=== PATIENT | female | born 1995 | race Caucasian/White ===

== ENCOUNTER 2019-08-10 03:51 | Emergency (ER) | payer OTHER ==
[2019-08-10 04:00] VITALS: BP 142/89
--- NOTE | 2019-08-10 04:11 | ED Physician Documentation ---
History of Present Illness - Stated complaint Stated Complaint: ARM RASH - Chief complaint Chief Complaint: Wound - Additonal information Additional information: This is a 24-year-old female who is otherwise healthy who presents with itchy r justino on her arms and her abdomen. This started several hours ago while she was at work, she notes that there have been some wheels of itchiness on her arms which have come and gone she has also had some spots on her abdomen, and her chest. She denies any painful spots, no swelling of her throat, no shortness of breath, no vomiting. She cannot think of any new potential allergic exposures in the environment, other than she ate [employer] for the first time today. She has no history of allergies. She otherwise feels well. Now her rash seems to be fading. Review of Systems Constitutional: denies: Fever Throat: denies: Sore throat Cardiac: denies: Chest pain / pressure Respiratory: denies: Dyspnea Skin: reports: Rash PD PAST MEDICAL HISTORY - Past Medical History Past Medical History: No - Past Surgical History Past Surgical History: No - Present Medications Home Medications: Ambulatory Orders Medication Instructions Recorded Confirmed Hydrocortisone 1% Oint 28 gm TP BID PRN #1 tube 08/10/19 [Hydrocortisone] diphenhydrAMINE [Benadryl] 25 mg PO Q4-6H PRN #20 capsule 08/10/19 - Allergies Allergies/Adverse Reactions: Allergies Allergy/AdvReac Type Severity Reaction Status Date / Time No Known Drug Allergies Allergy Verified 08/10/19 04:00 - Social History Does the pt smoke?: No Smoking Status: Never smoker Does the pt drink ETOH?: Yes Does the pt have substance abuse?: No - Immunizations Immunizations are current?: Yes PD ED PE NORMAL - Vitals Vital signs reviewed: Yes - General General: Alert and oriented X 3, No acute distress - HEENT HEENT: PERRL, Moist mucous membranes, Other (No oral lesions) - Neck Neck: Supple, no meningeal sign - Cardiac Cardiac: Other (RRR on my exam) - Respiratory Respiratory: No respiratory distress, Clear bilaterally - Derm Derm: Other (Scattered wheals over the bilateral antecubital fossae with slight erythema and extremely superficial exocriations from scratching. Erythema blanches. No pustules or blisters. There are a few wheals scattered on the abdomen as well) - Extremities Extremities: No deformity - Neuro Neuro: Alert and oriented X 3 - Psych Psych: Normal mood, Normal affect Results - Vitals Vitals: Vital Signs - 24 hr 08/10/19 03:56 Temperature 36.8 C Heart Rate 101 H Respiratory 18 Rate Blood Pressure 142/89 H O2 Saturation 98 Oxygen O2 Source Room air PD MEDICAL DECISION MAKING - ED course Complexity details: considered differential (Urticaria, contact dermatitis, allergic reaction) ED course: On exam patient has urticaria, she is well-appearing with no symptoms or signs of anaphylaxis, SJS, or other more serious cause of rash. Her rash has been steadily fading. She was given diphenhydramine and I discussed supportive care, avoidance of potential allergens, PCP follow up, and return precuations with any signs of more serious reaction. Patient agrees and was discharged home. Departure - Departure Disposition: 01 Home, Self Care Clinical Impression: Urticaria Condition: Good Instructions: ED Urticaria Follow-Up: Your,PCP [Other] - Within 1 week Prescriptions: diphenhydrAMINE [Benadryl] 25 mg PO Q4-6H PRN #20 capsule PRN Reason: Itching Hydrocortisone 1% Oint [Hydrocortisone] 28 gm TP BID PRN #1 tube PRN Reason: Itching Comments: You were seen today for an itchy rash, this appears to be hives. Sometimes this is an reaction to something in your environment, please be aware of any soaps, detergents, other potential allergens in your house or at work. If your symptoms are not getting better you should see your PCP. You may take the Benadryl for itchiness, if this is making you too sleepy you may try a nondrowsy antihistamine such as cetirizine instead. If you are developing rash in your mouth, painful rash, blisters, trouble breathing, vomiting, or any other concerning symptoms please return to the emergency department. Discharge Date/Time: 08/10/19 04:29
[2019-08-10] MEDS ORDERED: diphenhydrAMINE 25 MG CAPSULE PO STA (04:18)
== END 2019-08-10 04:29 | disposition home or self-care (01) ==
LOC: ED 03:51
DX: L50.9 Urticaria, unspecified (principal)
CPT/HCPCS: 99282; 99283; A9270

== ENCOUNTER 2021-01-03 07:00 | Outpatient (CLI) | payer OTHER ==
[2021-01-03 18:11] LABS: MUDS CUTOFF CONCENTRATIONS CUTOFF CONC BELOW:
[2021-01-03 18:16] LABS: BILIRUBIN,URINE NEGATIVE (NEGATIVE); GLUCOSE, URINE (UA) NEGATIVE (NEGATIVE); KETONES,URINE (UA) NEGATIVE (NEGATIVE); LEUKOCYTE ESTERASE, URINE NEGATIVE (NEGATIVE); NITRITE,URINE NEGATIVE (NEGATIVE); OCCULT BLOOD,URINE NEGATIVE (NEGATIVE); PROTEIN,URINE NEGATIVE (NEGATIVE); UROBILINOGEN,URINE 0.2 (NORMAL) E.U./dL (NORMAL)
[2021-01-03 18:23] LABS: CLARITY,URINE CLOUDY (CLEAR)
[2021-01-03 18:36] LABS: AMORPHOUS SEDIMENT,UR Marked /LPF; BACTERIA,URINE Few /HPF (None Seen); RBC,URINE None Seen /HPF (0-5); SQUAMOUS EPITHELIAL CELL,UR FEW Squamous (<= Few); WBC,URINE 0-3 /HPF (0-5)
[2021-01-03 18:37] LABS: AMPHETAMINE SCREEN,URINE NEGATIVE (NEGATIVE); BARBITURATE SCREEN,UR NEGATIVE (NEGATIVE); BENZODIAZEPINES SCREEN, URINE NEGATIVE (NEGATIVE); COCAINE SCREEN URINE NEGATIVE (NEGATIVE); METHADONE SCREEN, URINE NEGATIVE (NEGATIVE); METHAMPHETAMINES SCREEN, URINE NEGATIVE (NEGATIVE); OPIATE SCREEN, URINE NEGATIVE (NEGATIVE); OXYCODONE SCREEN, URINE NEGATIVE (NEGATIVE); PROPOXYPHENE SCREEN, URINE NEGATIVE (NEGATIVE); THC CANNABINOID SCREEN, URINE NEGATIVE (NEGATIVE); TRICYCLIC ANTIDEPRESSANT,URINE NEGATIVE (NEGATIVE)
== END 2021-01-03 23:59 | disposition home or self-care (01) ==
LOC: LAB.R 07:00
PROVIDERS: ATTEND Advanced Practice Midwife
DX: Z32.01 Encounter for pregnancy test, result positive (principal)
CPT/HCPCS: 80306; 81001; 87086

== ENCOUNTER 2021-01-14 18:31 | Outpatient (CLI) | payer OTHER ==
--- NOTE | 2021-01-14 21:03 | Ultrasound Report ---
PROCEDURE: OB First Trimester INDICATIONS: POSITIVE TEST OUTSIDE/PRIOR DATING DATA: Last menstrual period (LMP): 09/06/2021. LMP-based estimated date of delivery (GLENDA): 08/13/2021. First dating scan (date and location): 01/14/2021. Estimated date of delivery (GLENDA) from first dating scan: 08/13/2021. TECHNIQUE: Real-time scanning was performed of the fetus and maternal pelvic organs, with image documentation. COMPARISON: None FINDINGS: Embryo: Single live intrauterine is identified with crown-rump length measuring 3 cm corre sponding to 9 weeks 6 days. heart rate is identified at 169 bpm. Subchorionic hemorrhage is pre sent measuring measuring approximately 12 mm x 17 mm. Yolk sac is present. Measurement variability in dating: +/- 4 weeks by LMP, +/- 7 days by mean sac diameter (use before 6 weeks gestation if crown-rump length not able to be measured), +/- 5 days by crown-rump length (6-12 weeks gestation). Maternal organs: Ovaries are unremarkable. IMPRESSION: 1. Single live intrauterine with ultrasound gestational age of 9 weeks 6 days corresponding to ultrasound GLENDA of 08/12/2021. 2. Recommend follow-up imaging at 20-22 weeks for dates and anatomy. Reviewed by: Ashley Barr MD on 01/14/2021 9:01 PM PDT Approved by: Ashley Barr MD on 01/14/2021 9:01 PM PDT Station ID: [id number]
--- NOTE | 2021-01-14 21:03 | Ultrasound Report ---
PROCEDURE: OB Transvaginal INDICATIONS: POSITIVE TEST OUTSIDE/PRIOR DATING DATA: Last menstrual period (LMP): 09/06/2021. LMP-based estimated date of delivery (GLENDA): 08/13/2021. First dating scan (date and location): 01/14/2021. Estimated date of delivery (GLENDA) from first dating scan: 08/13/2021. TECHNIQUE: Real-time scanning was performed of the fetus and maternal pelvic organs, with image documentation. COMPARISON: None FINDINGS: Embryo: Single live intrauterine is identified with crown-rump length measuring 3 cm corre sponding to 9 weeks 6 days. heart rate is identified at 169 bpm. Subchorionic hemorrhage is pre sent measuring measuring approximately 12 mm x 17 mm. Yolk sac is present. Measurement variability in dating: +/- 4 weeks by LMP, +/- 7 days by mean sac diameter (use before 6 weeks gestation if crown-rump length not able to be measured), +/- 5 days by crown-rump length (6-12 weeks gestation). Maternal organs: Ovaries are unremarkable. IMPRESSION: 1. Single live intrauterine with ultrasound gestational age of 9 weeks 6 days corresponding to ultrasound GLENDA of 08/12/2021. 2. Recommend follow-up imaging at 20-22 weeks for dates and anatomy. Reviewed by: Ashley Barr MD on 01/14/2021 9:02 PM PDT Approved by: Ashley Barr MD on 01/14/2021 9:02 PM PDT Station ID: [id number]
== END 2021-01-14 18:32 | disposition home or self-care (01) ==
LOC: DI 18:31
PROVIDERS: ATTEND Advanced Practice Midwife
DX: Z32.01 Encounter for pregnancy test, result positive (principal)

== ENCOUNTER 2021-01-18 08:00 | Outpatient (CLI) | payer OTHER ==
[2021-01-18 23:29] LABS: CHLAMYDIA TRACHOMATIS DNA NEGATIVE (NEGATIVE); NEISSERIA GONORRHOEAE DNA NEGATIVE (NEGATIVE); TRICHOMONAS VAGINALIS DNA NEGATIVE (NEGATIVE)
== END 2021-01-18 23:59 | disposition home or self-care (01) ==
LOC: LAB 08:00
PROVIDERS: ATTEND Nurse Practitioner Obstetrics & Gynecology
DX: Z11.3 Encounter for screening for infections with a predominantly sexual mode of transmission (principal)
CPT/HCPCS: 87491; 87591; 87661

== ENCOUNTER 2021-01-25 09:07 | Outpatient (CLI) | payer OTHER ==
[2021-01-25 09:38] LABS: BASOPHILS # (AUTO) 0.1 10^3/uL (0.0-0.1); BASOPHILS % (AUTO) 0.8 %; EOSINOPHILS # (AUTO) 0.1 10^3/uL (0.0-0.7); EOSINOPHILS % (AUTO) 1.4 %; HCT - HEMATOCRIT 38.8 % (37.0-47.0); HGB - HEMOGLOBIN 13.4 g/dL (12.0-16.0); LYMPHOCYTES # (AUTO) 1.1 10^3/uL (1.5-3.5); LYMPHOCYTES % (AUTO) 18.1 %; MEAN CORPUSCULAR HEMOGLOBIN 30.5 pg (27.0-31.0); MEAN CORPUSCULAR HGB CONC 34.5 g/dL (32.0-36.0); MEAN CORPUSCULAR VOLUME 88.2 fL (81.0-99.0); MEAN PLATELET VOLUME 9.6 fL (7.9-10.8); MONOCYTES # (AUTO) 0.5 10^3/uL (0.0-1.0); MONOCYTES % (AUTO) 7.9 %; NEUTROPHILS # (AUTO) 4.5 10^3/uL (1.5-6.6); NEUTROPHILS % (AUTO) 71.5 %; PLT - PLATELET COUNT 204 10^3/uL (130-450); RED CELL DISTRIBUTION WIDTH 12.1 % (12.0-15.0); WHITE BLOOD COUNT 6.3 x10^3/uL (4.8-10.8)
[2021-01-25 14:14] LABS: CHLAMYDIA TRACHOMATIS DNA NEGATIVE (NEGATIVE); NEISSERIA GONORRHOEAE DNA NEGATIVE (NEGATIVE); TRICHOMONAS VAGINALIS DNA NEGATIVE (NEGATIVE)
[2021-01-26 09:57] LABS: HEPATITIS B SURFACE ANTIGEN NON-REACTIVE (NON-REACTIVE); HEPATITIS C ANTIBODY NON-REACTIVE (NON-REACTIVE); HIV AG/AB 4TH GEN NON-REACTIVE (NON-REACTIVE)
[2021-01-28 12:35] LABS: CIGARETTE SMOKER? NOT GIVEN; DONOR AGE: EGG RETRIEVAL NOT GIVEN; DONOR EGG N; HX OF NEURAL TUBE DEFECTS N; INSULIN DEPEND DIABETIC N; MATERNAL WEIGHT 220 lbs; NUMBER OF FETUSES 1; PREV PREGNANCY DOWN SYND N
== END 2021-01-25 09:08 | disposition home or self-care (01) ==
LOC: LAB 09:07
PROVIDERS: ATTEND Nurse Practitioner Obstetrics & Gynecology
DX: Z36.89 Encounter for other specified antenatal screening (principal); Z36.8A Encounter for antenatal screening for other genetic defects
CPT/HCPCS: 36415; 85025; 86592; 86762; 86787; 86803; 86850; 86900; 86901; 87340; 87389; 87491; 87591; 87661

== ENCOUNTER 2021-01-26 10:45 | Outpatient (CLI) | payer OTHER | END 2021-01-26 23:59 | disposition home or self-care (01) | LOC: LAB.R 10:45 | PROVIDERS: ATTEND Family Medicine | DX: R05 Cough (principal); Z20.822 Contact with and (suspected) exposure to COVID-19 ==

== ENCOUNTER 2021-02-08 09:22 | Outpatient (CLI) | payer OTHER | END 2021-02-08 09:23 | disposition home or self-care (01) | LOC: LAB 09:22 | PROVIDERS: ATTEND Nurse Practitioner Obstetrics & Gynecology | DX: Z36.8A Encounter for antenatal screening for other genetic defects (principal) | CPT/HCPCS: 36415; 81220 ==

== ENCOUNTER 2021-03-15 14:49 | Outpatient (CLI) | payer OTHER ==
[2021-03-26 09:41] LABS: MATERNAL WEIGHT 219
[2021-03-26 09:43] LABS: HCG MOM 2.02
[2021-03-26 09:45] LABS: CALCULATED GESTATIONAL AGE 18.4
[2021-03-26 09:46] LABS: AFP MOM 1.36; PAPP-A 420.7
[2021-03-26 09:48] LABS: HISTORY OF NEURAL TUBE DEFECTS N; INSULIN DEPEND DIABETIC N; NUMBER OF FETUSES 1; PAPPA-A MoM 1.11
[2021-03-26 09:49] LABS: CIGARETTE SMOKER? NOT GIVEN
== END 2021-03-15 14:50 | disposition home or self-care (01) ==
LOC: LAB 14:49
PROVIDERS: ATTEND Nurse Practitioner Obstetrics & Gynecology
DX: Z36.8A Encounter for antenatal screening for other genetic defects (principal)
CPT/HCPCS: 36415; 82105; 82677; 84163; 84702; 86336

== ENCOUNTER 2021-03-27 17:46 | Outpatient (CLI) | payer OTHER ==
--- NOTE | 2021-03-28 16:24 | Ultrasound Report ---
PROCEDURE: OB Detailed Eval INDICATIONS: SUPERVISION OF NORMAL OUTSIDE/PRIOR DATING DATA: Last menstrual period (LMP): 11/06/2020. LMP-based estimated date of delivery (GLENDA): 08/13/2021. First dating scan (date and location): 01/14/21 at [facility]. Estimated date of delivery (GLENDA) from first dating scan: 08/13/2021. The below data below was generated using the GLENDA of 08/13/2021. TECHNIQUE: Real-time scanning was performed of the fetus, with image documentation and biometric measurements. COMPARISON: 12/2620. FINDINGS: Evaluation limited by maternal body habitus. General: A single living intrauterine gestation is present. Presentation: Cephalic Placenta: Placental position is posterior, without previa. Amniotic fluid index: 21.3 cm, 95th percentile for gestational age. heart rate: 137 beats per minute. Maternal cervical canal: 6 cm long; normal length is 2.5 cm or more. biometrics: Biparietal diameter: 4.8 cm, 20 weeks 3 days Head circumference: 17.2 cm, 19 weeks 5 days Abdominal circumference: 15.4 cm, 20 weeks 4 days Femur length: 3.1 cm, 19 weeks 4 days Estimated gestational age from initial scan: 20 weeks 1 day Composite gestational age from present scan: 20 weeks 1 day Estimated weight and percentile: 333 g corresponding to the 43rd percentile Measurement variability in biometric dating: +/- 10 days from 12-20 weeks gestation, +/- 2 weeks from 20-30 weeks gestation, +/- 3 weeks at 30 weeks gestation or later. Anatomic survey: Neuro: Ventricles are normal at less than 10 mm. Cisterna magna is normal at 3-11 mm. Cerebellum i s normal in size and morphology. Nuchal skin fold: Normal at less than 6 mm between 14 and 20 weeks gestational age. Face: Facial structures not well visualized. Spine: No evidence for spina bifida. Heart: cardiac structures not well visualized. Diaphragm: Diaphragm is intact. Stomach: Left-sided stomach is present. Kidneys: No hydronephrosis. Normal is less than 5 mm in 2nd trimester, less than 7 mm in 3rd trimester. Cord: There is a marginal placental cord insertion approximate 1.1 cm from the fundal margin. Three- vessel cord not definitively demonstrated. Bladder: Normal in size. Extremities: All 4 extremities are visualized. There is a linear sheetlike projection adjacent to the placenta extending to the uterine wall. This f inding is incompletely evaluated on the static images obtained. IMPRESSION: 1. Single living intrauterine demonstrating appropriate interval growth with estimated feta l weight at the 43rd percentile. 2. Amniotic fluid index at the 95th percentile. Recommend attention on follow-up. 3. Linear bandlike structure adjacent to the placenta extending reviewed and wall. The finding is sug gestive of an amniotic sheet, or amniotic shelf, but is incompletely evaluated on the images obtained . Recommend a short-term follow-up repeat study for further evaluation. 4. facial and heart structures not well visualized due to positioning and maternal body habitus . Recommend a short-term follow-up repeat study in 2-4 weeks for further evaluation. 5. Marginal placental cord insertion. Recommend attention on follow-up. Reviewed by: Stephen Lujan MD on 03/28/2021 4:22 PM PDT Approved by: Stephen Lujan MD on 03/28/2021 4:22 PM PDT Station ID: [id number]
== END 2021-03-27 17:47 | disposition home or self-care (01) ==
LOC: DI 17:46
PROVIDERS: ATTEND Nurse Practitioner Obstetrics & Gynecology
DX: O99.891 Other specified diseases and conditions complicating pregnancy (principal); R93.89 Abnormal findings on diagnostic imaging of other specified body structures; Z3A.20 20 weeks gestation of pregnancy

== ENCOUNTER 2021-04-28 14:55 | Outpatient (CLI) | payer OTHER ==
[2021-04-28 15:15] VITALS: BP 100/62
[2021-04-28 15:27] LABS: BASOPHILS % (AUTO) 0.2 %; EOSINOPHILS # (AUTO) 0.1 10^3/uL (0.0-0.7); EOSINOPHILS % (AUTO) 1.4 %; HCT - HEMATOCRIT 35.3 % (37.0-47.0); HGB - HEMOGLOBIN 11.9 g/dL (12.0-16.0); LYMPHOCYTES # (AUTO) 1.1 10^3/uL (1.5-3.5); LYMPHOCYTES % (AUTO) 13.7 %; MEAN CORPUSCULAR HEMOGLOBIN 30.4 pg (27.0-31.0); MEAN CORPUSCULAR HGB CONC 33.7 g/dL (32.0-36.0); MEAN CORPUSCULAR VOLUME 90.3 fL (81.0-99.0); MEAN PLATELET VOLUME 9.4 fL (7.9-10.8); MONOCYTES # (AUTO) 0.6 10^3/uL (0.0-1.0); MONOCYTES % (AUTO) 6.9 %; NEUTROPHILS # (AUTO) 6.2 10^3/uL (1.5-6.6); NEUTROPHILS % (AUTO) 77.7 %; PLT - PLATELET COUNT 210 10^3/uL (130-450); RED BLOOD COUNT 3.91 10^6/uL (4.20-5.40); RED CELL DISTRIBUTION WIDTH 13.2 % (12.0-15.0)
[2021-04-28 15:49] LABS: ALBUMIN 3.3 g/dL (3.2-5.5); BILIRUBIN,TOTAL 0.7 mg/dL (0.2-1.0); CALCIUM 8.8 mg/dL (8.5-10.3); CREATININE 0.5 mg/dL (0.4-1.0); POTASSIUM 3.4 mmol/L (3.5-5.0); TOTAL PROTEIN 6.5 g/dL (6.7-8.2)
[2021-04-28 16:21] LABS: CREATININE,URINE 179.1 mg/dL; PROTEIN/CREATININE RATIO,URINE 0.1 (<=0.2)
--- NOTE | 2021-04-30 15:39 | PROVIDER PROGRESS NOTE ---
- HPI Chief Complaint: Hypertension/PIH Current : Current EDU 08/13/21 Gestation 24 Weeks and 5 Days 1 Para 0 Vital Signs Temperature 99.1 F 04/28/21 15:00 Heart Rate 113 H 04/28/21 15:00 Respiratory Rate 20 04/28/21 15:00 Blood Pressure 100/62 04/28/21 15:00 O2 Saturation 98 04/28/21 15:00 Temperature 99.1 F 04/28/21 15:00 Heart Rate 113 H 04/28/21 15:00 Respiratory Rate 20 04/28/21 15:00 Blood Pressure 100/62 04/28/21 15:00 O2 Saturation 98 04/28/21 15:00 - Exam VS: 99.1 113 100/62 20 98 GEN: NAD HEENT: NCAT CV:RRR RESP: normaeffort ABD: gravid, S&NT/ND. No RUQ tenderness NEURO: A&O PSYCH: appropriate affect - Procedures OB Procedure Performed: NST NST Procedure: NST Procedure Start Date 04/28/21 Start Time 15:02 Stop Time 15:29 Vibroacoustic Stimulation Used No Patient States Movement Yes EFM 130 mod keisha 10x10 and 15x15 accels, no decels TOCO: quiet AGA/CAT I Service Date of procedure: 04/28/21 - Plan Plan: ID: Patient is a 26 yo at 24+5 wga here for evaluation of gestational hypertension. HPI: Patient was seen in iic today and was noted to have elevated blood pressures. Initial BP was 140 / 88 Repeat BP 150/78. No PIH symptoms. Patient having high anxiety over recent bad experience. Sent to triage for PIH eval. Endorses FM. Denies LOF/VB/CTX. Past Medical History: Past Medical History was requested of patient but none was remarked. Past Surgical History: Unremarkable PNC HX: Initial ultrasound @ 9.6wks gestation c/w LMP dating. GLENDA by U/S 08/13/2021 LMP 09/06/2021 - GLENDA 08/13/2021 FINAL GLENDA 08/13/2021 HTN today: may be circumstantial per patient report -Sending to triage for PIH eval A pos/Rubella immune VZV: non immune Genetic testing: Serum integrated screen part 1 & 2 completed. WNL. FAS completed 03/27/21: Posterior placenta. JENSEN 21.3. EFW 43%. Marginal cord insertion (1.1 cm away from fundal margin), with three vessels not definitively seen. Facial views not complete. "Linear bandlike structure adjacent to the placenta...suggestive of an amniotic sheet, or amniotic shelf, but is incompletely evaluated..." FHT 137. -Repeat done at [facility] on 04/27: R lateral placenta, 3 VC, JENSEN WNL, EFW 64%. Hypoplastic nasal bone. Limited views of the heart and transverse spine, although no abnormalities suspected. *Patient reports that they "took some blood" after reviewing the hypoplastic nasal bone Glucola - ordered Influenza: received through [facility] this season TDAP - next visit GBS @ 36 weeks HSV: denies in self and partner Breast pump Rx MOD: Anticipate ; Partner DJ - both she and DJ are [employer]; pp contraception: pap: 05/2020 LSIL - repeat pap ROS: As per HPI, otherwise remaining systems are negative PE: See above PIH labs wnl P:C 0.1 A/P: Patient is a 26 yo at 24+5 wga here for evaluation of gestational hypertension. Observed over 2H with normal BPs Normal PIH labs and negative proteinuria Cat I /AGA tracing DC to home with routine fu Warning signs reviewed DOS 04/28/21 NST read 04/28/21 DX: IUP at 24+5 wga OLESYA
== END 2021-04-28 16:48 | disposition home or self-care (01) ==
LOC: WFO 14:55 → FBP 14:56 → WFO 16:48
PROVIDERS: ATTEND Obstetrics & Gynecology
DX: O13.2 Gestational [pregnancy-induced] hypertension without significant proteinuria, second trimester (principal); Z3A.34 34 weeks gestation of pregnancy
CPT/HCPCS: 36415; 59025; 80053; 82570; 84156; 85025; 99214; 99215

== ENCOUNTER 2021-05-30 11:14 | Outpatient (CLI) | payer OTHER ==
[2021-05-30 12:47] LABS: HCT - HEMATOCRIT 35.7 % (37.0-47.0); HGB - HEMOGLOBIN 12.3 g/dL (12.0-16.0); MEAN CORPUSCULAR HEMOGLOBIN 30.4 pg (27.0-31.0); MEAN CORPUSCULAR HGB CONC 34.5 g/dL (32.0-36.0); MEAN CORPUSCULAR VOLUME 88.4 fL (81.0-99.0); MEAN PLATELET VOLUME 9.8 fL (7.9-10.8); RED BLOOD COUNT 4.04 10^6/uL (4.20-5.40); RED CELL DISTRIBUTION WIDTH 12.8 % (12.0-15.0); WHITE BLOOD COUNT 7.9 x10^3/uL (4.8-10.8)
== END 2021-05-30 11:15 | disposition home or self-care (01) ==
LOC: LAB 11:14
PROVIDERS: ATTEND Obstetrics & Gynecology
DX: O09.90 Supervision of high risk pregnancy, unspecified, unspecified trimester (principal)
CPT/HCPCS: 36415; 82950; 85027; 86850